=== PATIENT | female | born 2000 | race Caucasian/White ===

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

== ENCOUNTER 2024-03-30 13:58 | Observation (INO) ==
--- NOTE | 2024-03-30 14:12 | ED Triage Note ---
Date of Service March 30, 2024 Provider in Triage Author: Dea Chandler History of Present Illness This patient was briefly evaluated while in triage. An abbreviated physical exam was performed. This patient is a 24-year-old Female who presents to the ED for evaluation of cat bite to the right hand. Pt. was trying to trap a stray cat yesterday morning when the cat bit her. States today, the right hand is more red and painful. States the cat appeared well, did not appear ill. Denies fever or systemic symptoms. Physical Exam VITALS: Vitals are noted on the nurse's note and reviewed by myself. GENERAL: This is a 24 year old female, in no acute distress, nondiaphoretic, well-developed well-nourished. SKIN: No obvious rashes, edema, erythema HEAD: Normocephalic atraumatic. EYES: Conjunctivae without injection, sclerae without icterus. NECK: No JVD. LUNGS: No retractions or accessory muscle use. MUSCULOSKELETAL: Normal gait. NEURO: Patient was alert and oriented to person place and time. No focal neurological deficits. Initial orders for labs and / or imaging were placed and patient was placed in the waiting area until a bed is available. Please see further documentation for the full ED course.
[2024-03-30] MEDS: DIPHTHER/TETAN/PERTUS Vaccine (Tdap, Adol/Adult) 0.5mL IM ONE (14:34)
[2024-03-30] MEDS: SODIUM CHLORIDE 0.9% 1,000 ML IV SCH (14:35)
--- NOTE | 2024-03-30 14:52 | Emergency Department Note ---
History of Present Illness General Chief complaint: Animal Bite Stated complaint: CAT BITE RT HAND Time Seen by Provider: 03/30/24 14:37 History of Present Illness Maximum Pain Intensity: 3 This is a 24-year-old female who presents to the emergency department via private vehicle with complaints of "cat bite to right hand". Patient states that yesterday she was bitten on the dorsal aspect of the right hand. Minimal pain overall. No numbness or tingling. Since that time she notes progressive redness and swelling to the dorsal aspect of the right hand tracking down to the forearm. Unsure of tetanus vaccine status and was ordered from triage and already administered prior to my assessment of the patient. Not currently on oral antibiotics. Patient notes that she has not received any rabies vaccine in life to date. Patient is not concerned about rabies. Patient notes that the cat was a "TNR cat" which is trap, neuter and release. She states that" the cat bit her and then ran off. She is unsure of the whereabouts of the cat. She does not want the rabies postexposure series at this time. Home Medications Medication Instructions Recorded Confirmed Type ibuprofen 200 mg tablet 600 mg PO DIRECTED PRN 03/30/24 03/30/24 History PAIN/FEVER Allergies Allergy/AdvReac Type Severity Reaction Status Date / Time fluconazole Allergy Intermediate Rash Verified 03/30/24 15:22 Past Med/Surg History Problem List (Updated 03/30/24 @ 16:02 by Gilbert Judd PA-C) Hypokalemia Cat bite of right hand with infection (Acute) Vitamin D deficiency Nexplanon in place placed 11/05 Obesity Low back pain Paresthesia Depression Mamadou's thyroiditis No history of previous surgery (Chronic) Hypothyroidism (Chronic) PCOS (polycystic ovarian syndrome) (Chronic) Surgical History S/P ear surgery Family History Mother Depression Denies family history of Ovarian cancer Prostate cancer Myocardial infarction Breast cancer Colorectal cancer Social History Smoking Status: Never smoker Second Hand Exposure: Yes; Hx Alcohol Use: Yes Alcohol type: hard liquor Hx Substance Use: No Preferred Language: Serbian Communication Ability: Effective Visual Impairment: No Limitations Hearing Ability: Normal 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 Beliefs That Will Affect Care: None marital status: Single Current Living Situation: Alone current occupational status: employed current occupation: [employer] Feels Safe at Home: Yes Childhood Exposure to Second-Hand Smoke: Yes Physical Activity Frequency: 1-2 Times per Week Seatbelt Use: always Sunscreen Use: Yes Review of Systems A total of 6 systems reviewed and were otherwise negative Physical Exam Vital Signs Vital Signs - 24 hr 03/30/24 14:11 Temperature 36.5 C Temperature Source Temporal Artery Scan Pulse Rate 77 Respiratory Rate 20 Respiratory Effort / Characteristics Non-Labored Spontaneous Respiratory Depth Normal Blood Pressure 155/89 H Blood Pressure Mean 111 Pulse Oximetry 98 Oxygen Delivery Method Room Air Sepsis Recent Fever Within 48 Hours No Sepsis New/Unexplained Change in Mental Status No Sepsis Action Taken by Nursing No Action Required VITAL SIGNS - Vital signs and nursing notes were reviewed. Stable and afebrile. GENERAL -24-year-old female appearing her stated age who is in no acute distress. Communicates well with provider and answers questions appropriately. SKIN -skin as above as seen in the picture but described as erythema originating from puncture wounds to the dorsal aspect of the right hand favoring medial aspect with erythema tracking overlying the entire dorsal aspect of the hand and the proximal fingers as well as proximally into the dorsal distal forearm area. Puncture wounds are not open at this time. Small scabs at the puncture wounds noted. No purulence. No crepitus. HEAD - NC/AT. EYES - Sclera anicteric. EARS - No deformities of external structures noted on gross examination bilaterally. NOSE - Midline and without cyanosis. No epistaxis or purulent drainage noted. Septum midline without deviation or septal hematoma noted. MOUTH/OROPHARYNX - Without perioral cyanosis. NECK - Neck with FROM. No nuchal rigidity. LUNGS - Chest wall symmetric without accessory muscle use, intercostals retractions, or central cyanosis. Normal vesicular breath sounds CTA B/L. No wheezes, rales, or rhonchi appreciated. CARDIAC - RRR with S1/S2. No murmur, rubs, or gallops appreciated. EXTREMITIES - No clubbing or peripheral cyanosis. Skin as above. Mild tenderness to the dorsal right hand. She is otherwise neurovascularly intact throughout the right upper extremity without deficit. Cap refill of all digits of the right hand within normal limits. Patient able to make a full fist with the fingers of the right hand and fully open the right hand actively. Cap refill within normal limits of all digits of the right hand. No crepitus or lymphangitic streaking. R hand heddler strength WNL. NEUROLOGIC - sensory intact light touch throughout the right upper extremity without deficit. PSYCH -alert, oriented and pleasant on exam. Course Administered Medications Acetaminophen (Acetaminophen 325 Mg Tab) 650 mg PO Q6H PRN PRN Reason: pain(1-4),headache,fever Stop: 04/29/24 15:44 Last Admin: 03/30/24 20:09 Dose: 650 mg Documented By: VERITO Ampicillin Sodium/Sulbactam Sodium 3,000 mg/ Sodium Chloride 100 mls @ 100 mls/hr IV Q6H [facility] Stop: 04/06/24 20:59 Last Infusion: 03/30/24 23:21 Dose: Infused Documented By: Admin: 03/30/24 21:39 Dose: 100 mls/hr Documented By: VERITO Discontinued Medications Diphtheria/Pertussis/Tetanus Vacc (Diphther/Tetan/Pertus Vaccine (Tdap, Adol/Adult) 0.5ml) 0.5 ml IM .ONCE ONE Stop: 03/30/24 14:13 Last Admin: 03/30/24 14:34 Dose: 0.5 ml Documented By: CHRISTIE Sodium Chloride (Nss) 1,000 mls @ 999 mls/hr IV .Q1H1M [facility] Stop: 03/30/24 15:15 Last Infusion: 03/30/24 16:55 Dose: Infused Documented By: Admin: 03/30/24 14:35 Dose: 999 mls/hr Documented By: CHRISTIE Ampicillin Sodium/Sulbactam Sodium 3,000 mg/ Sodium Chloride 100 mls @ 200 mls/hr IV NOW STA Stop: 03/30/24 14:41 Last Infusion: 03/30/24 16:54 Dose: Infused Documented By: Admin: 03/30/24 15:08 Dose: 200 mls/hr Documented By: EMILY Potassium Chloride (Potassium Chloride Crtab 20 Meq Tabcr) 40 meq PO NOW STA Stop: 03/30/24 15:52 Last Admin: 03/30/24 17:14 Dose: 40 meq Documented By: HARVEY Medical Decision Making Laboratory Data 03/30/24 14:38 03/30/24 14:38 Lab Results 03/30/24 Range/Units 14:38 WBC 13.32 H (4.8-10.8) K/ul RBC 4.34 (4.20-5.40) M/uL Hgb 13.5 (12.0-16.0) g/dl Hct 39.4 (37.0-47.0) % MCV 90.8 (80.0-100.0) fL MCH 31.1 (25.0-34.0) pg MCHC 34.3 (32.0-36.0) g/dL RDW Std Deviation 40.8 (36.4-46.3) fL RDW Coeff of Pilar 12.3 (11.5-14.5) % Plt Count 342 (130-400) K/uL MPV 10.1 (9.4-12.4) fL Immature Gran % (Auto) 0.5 % Neut % (Auto) 65.2 % Lymph % (Auto) 24.5 % [place] % (Auto) 8.6 % Eos % (Auto) 0.8 % Baso % (Auto) 0.4 % Neut # (Auto) 8.68 H (1.40-6.50) K/uL Lymph # (Auto) 3.27 (1.20-3.40) K/uL [place] # (Auto) 1.15 H (0.11-0.59) K/uL Eos # (Auto) 0.11 (0.00-0.50) K/uL Baso # (Auto) 0.05 (0.00-0.20) K/uL Immature Gran # (Auto) 0.06 (0.01-0.20) K/uL Sodium 137 (136-145) mmol/L Potassium 3.4 L (3.5-5.1) mmol/L Chloride 103 (98-107) mmol/L Carbon Dioxide 27 (21-32) mmol/L Anion Gap 7 (3-11) BUN 9 (6-23) mg/dl Creatinine 0.77 (0.6-1.2) mg/dl Est Cr Clr Drug Dosing 152.9 ml/min Est GFR ( Amer) 123.5 ml/min Est GFR (Non-Af Amer) 106.6 ml/min BUN/Creatinine Ratio 11.7 (10-20) Glucose 81 (70-99(Fasting)) mg/dl Calcium 9.3 (8.6-10.3) mg/dl Magnesium 1.9 (1.7-2.4) mg/dl Total Bilirubin 0.5 (0.2-1.0) mg/dl AST 17 (13-39) U/L ALT 16 (7-52) U/L Alkaline Phosphatase 80 (34-104) U/L Total Protein 7.8 (6.0-8.3) gm/dl Albumin 4.3 (3.4-5.0) gm/dl Globulin 3.5 (2.5-4.0) gm/dl Albumin/Globulin Ratio 1.2 (0.9-2) Imaging Data Radiologist's Impression: Hand X-Ray 03/30/24 14:47 XR hand RT min 3V routine HISTORY: 24 years-old Female R hand cat bite, infection acute right hand pain status post soft tissue injury COMPARISON: None TECHNIQUE: 3 views of the right hand FINDINGS: Dorsal hand soft tissue swelling. Mild negative ulnar variance. No acute fracture, dislocation, osseous erosion or opaque foreign body. IMPRESSION: Soft tissue swelling without acute osseous abnormality or opaque foreign body. ACT 112: Negative or not required by law. The above report was generated using voice recognition software. It may contain grammatical, syntax or spelling errors. Electronically signed by: Philip Madsen M.D. 03/30/2024 3:40 PM MDM Narrative Patient was seen and evaluated as above in room D02a. Review was performed of triage nursing notes and vital signs. A thorough history and physical exam was performed. Patient presents to us today for evaluation of an infected cat bite to the dorsal right hand. My assessment there is obvious infection noted. Consent was obtained and a picture of the hand was obtained and placed here in the chart within the physical exam section to help track progression. Options of care were discussed with the patient. IV access was established. Labs were drawn. Patient was evaluated in triage and already had orders placed for tetanus vaccine status update, fluids, IV Unasyn. This is reasonable. X- ray of the right hand was also ordered. Negative for fracture or radiopaque foreign body per my interpretation. She denies chance of . Labs reveal leukocytosis 13.32. No anemia. I did have a thorough discussion with the patient regarding indication for postexposure rabies prophylaxis. She was bitten by a cat that has an unknown vaccine status and is not currently observable as it ran off after it bit her. I informed the patient that as there is a chance for rabies exposure in this scenario, that it would be indicated to proceed with the rabies postexposure series. I reviewed this with the patient. I informed the patient that rabies is not treatable if it would be acquired, rather it is only preventable through postexposure series. She is aware of all of this and respectfully declines rabies postexposure treatment. Noting location and mechanism patient will require inpatient management for IV antibiotics and close trending of the right hand infection. Case discussed with the hospitalist service. Please refer to further documentation regarding her stay. In the evaluation and treatment of this patient the following differential diagnoses were entertained: Cellulitis, abscess, retained foreign body, fracture, contusion, among others Impression & Plan Cat bite of right hand with infection Discharge Plan Visit Data Chief Complaint: Animal Bite Stated Complaint: CAT BITE RT HAND ED Provider: Damian Raza ED Midlevel Provider: Rolly Dorado Discharge Problem: Cat bite of right hand with infection Patient Disposition: Admitted As Inpatient Condition: Good Discharge Instructions Interventions: ED Discharge Assessment Last Done: 03/30/24 17:42
[2024-03-30] MEDS: AMPICILLIN/SULBACTAM SOD 3,000 MG in SODIUM CHLOR 0.9% MINI-B 100 ML IV STA (15:08)
[2024-03-30 15:13] LABS: Basophils # (auto) 0.05 K/uL (0.00-0.20); Basophils % (auto) 0.4 %; Eosinophils # (auto) 0.11 K/uL (0.00-0.50); Eosinophils % (auto) 0.8 %; Hematocrit (blood only) 39.4 % (37.0-47.0); Hemoglobin 13.5 g/dl (12.0-16.0); Immature Granulocytes # (auto) 0.06 K/uL (0.01-0.20); Immature Granulocytes % (auto) 0.5 %; Lymphocytes # (auto) 3.27 K/uL (1.20-3.40); Lymphocytes % (auto) 24.5 %; Mean Corpuscular Hemoglobin 31.1 pg (25.0-34.0); Mean Corpuscular Hgb Conc 34.3 g/dL (32.0-36.0); Mean Corpuscular Volume 90.8 fL (80.0-100.0); Mean Platelet Volume 10.1 fL (9.4-12.4); Monocytes # (auto) 1.15 K/uL (0.11-0.59); Monocytes % (auto) 8.6 %; Neutrophils # (auto) 8.68 K/uL (1.40-6.50); Neutrophils % (auto) 65.2 %; Platelet Count 342 K/uL (130-400); RDW Coefficient of Variation 12.3 % (11.5-14.5); RDW Standard Deviation 40.8 fL (36.4-46.3); Red Blood Count 4.34 M/uL (4.20-5.40); White Blood Count 13.32 K/ul (4.8-10.8)
--- NOTE | 2024-03-30 15:37 | History & Physical Report ---
Date of Service March 30, 2024 Assessment & Plan (1) Cat bite of right hand with infection: Plan: -Admit to med/surge -Currently stable and non-toxic appearing -Developed progressive swelling/erythema over the dorsal aspect of the right hand after being bitten by a stray cat yesterday -Noted to have a leukocytosis of 13 -Xray of the right hand notes soft tissue swelling but negative for abscess or bone involvement -S/P one dose of Unasyn and Diphtheria/tetanus/pertussis booster -Patient continues to decline rabies post-exposure prophylaxis, continue to stress importance and risks if she does not receive prophylaxis -Will continue with Unasyn for now, should be able to be converted to PO abx tomorrow -Will obtain blood cultures -HH diet -BL SCD's for DVT PPX -AM CBC, BMP, mag (2) Hypokalemia: Plan: -3.4 in the ED -Will obtain ECG and mag level -Will give 40 meq PO KCL now -Monitor am electrolytes Plan The patient was discussed with Dr. Smith at the time of the admission History of Present Illness Chief Complaint: Cat bite, progressive erythema/swelling of right hand Primary Care Provider: Jenn Valencia DO Kerri is a 24 year old female with a PMH significant for morbid obesity, hypothyroidism, PCOS, and depression who presented to the [facility] ED on 03/30/24 due to ongoing erythema, swelling, and pain of the right hand after sustaining a cat bite yesterday. Per the ED, the patient noted that the cat is a catch, neuter, and release animal and is not domesticated. She was recommended to receive rabies vaccinations for prevention but declined as she believes the cat to be healthy. She remained stable in the ED. Labs were significant for a leukocytosis of 13 with neutrophil predominance of 8, potassium of 3.4. Xray of the right hand was read as "Soft tissue swelling without acute osseous abnormality or opaque foreign body. ". Prior to admission the patient was given 1L NSS, a dose of Unasyn, and Diphtheria/tetanus/pertussis booster. At the time of the exam the patient was sitting in bed in no acute distress. 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 She has been tacking this particular cat for a few weeks and she reports it had been acting normally and did not look ill. Yesterday she attempted to trap the cat but it bit her on the dorsal aspect of the right hand. She initially had mild swelling and erythema of the dorsal aspect to of the right hand. Overnight she experienced progressive swelling/erythema just distal to the right wrist. Pain is currently controlled, has intact sensation/motor function and is able to flex right hand without issue. Denies recent fever, chills, chest pain, SOB, and pain, nausea, vomiting, diarrhea, dysuria, hematuria, melena, LE swelling, and recent trauma. Spoke to the patient at length regarding the risk of contract rabies due to the animal bite, especially since the animal is a stray and is unable to be tested. I explained that rabies is very preventable with current vaccination schedules after the bite and that it is untreatable after symptoms begin, which can result in . The patient expressed understanding of the risks of not receiving post exposure prophylaxis and elected to hold off at this time. Please refer to Dr. Smith's attestation for any changes to the treatment plan Allergies Allergy/AdvReac Type Severity Reaction Status Date / Time fluconazole Allergy Intermediate Rash Verified 03/30/24 15:22 Home Medications Medication Instructions Recorded Confirmed Type ibuprofen 200 mg tablet 600 mg PO DIRECTED PRN 03/30/24 03/30/24 History PAIN/FEVER Past Med/Surg History Problem List (Updated 03/30/24 @ 16:02 by Gilbert Judd PA-C) Hypokalemia Cat bite of right hand with infection (Acute) Vitamin D deficiency Nexplanon in place placed 11/05 Obesity Low back pain Paresthesia Depression Mamadou's thyroiditis No history of previous surgery (Chronic) Hypothyroidism (Chronic) PCOS (polycystic ovarian syndrome) (Chronic) Surgical History S/P ear surgery Family History Mother Depression Denies family history of Ovarian cancer Prostate cancer Myocardial infarction Breast cancer Colorectal cancer Social History Smoking Status: Never smoker Second Hand Exposure: Yes; Hx Alcohol Use: Yes Hx Substance Use: No Preferred Language: Slovak Communication Ability: Effective Visual Impairment: No Limitations Hearing Ability: Normal marital status: Single Current Living Situation: Alone current occupational status: employed current occupation: [employer] Feels Safe at Home: Yes Childhood Exposure to Second-Hand Smoke: Yes Physical Activity Frequency: 1-2 Times per Week Seatbelt Use: always Sunscreen Use: Yes Physical Exam Physical Exam: Physical Exam: General: In no acute distress, stated age, well-nourished, non-toxic appearing HEENT: Normocephalic, atraumatic, no scleral icterus, pupils around round, symmetrical, and reactive to light, moist mucus membranes, trachea midline, no thyromegaly Chest/Pulm: No respiratory distress, symmetrical chest expansion, clear breath sounds throughout Cardiac: RRR, no murmurs noted Abdomen: Negative for ascites and bruising, normoactive bowel sounds, soft, non-tender to palpation throughout Musculoskeletal: Symmetrical and without signs of acute trauma, upper and lower extremities with full ROM, no atrophy, spasticity, or flaccidity Extremities: Radial, dorsalis pedis, and posterior tibial pulses are intact and symmetrical, no edema noted in the BL LE's Skin: Patient with swelling and erythema overlying the dorsal aspect of the right hand between the knuckles of the right hand and just distal to the right wrist >No current drainage from the small puncture crespo on the dorsal aspect of the right hand Neuro: Alert and oriented to person, place, month, year, and president, no focal defects, no tremors noted Psych: No acute distress, calm and cooperative during the exam Results & Data Results & Data Vital Signs (Past 12 Hours) Vital Signs Temp Pulse Resp BP Pulse Ox O2 Del Method 03/30/24 14:11 36.5 C 77 20 155/89 H 98 Room Air Laboratory Results Abnormal lab results 03/30/24 Range/Units 14:38 WBC 13.32 H (4.8-10.8) K/ul Neut # (Auto) 8.68 H (1.40-6.50) K/uL [place] # (Auto) 1.15 H (0.11-0.59) K/uL Potassium 3.4 L (3.5-5.1) mmol/L Diagnostic Findings Hand X-Ray 03/30/24 14:47 XR hand RT min 3V routine HISTORY: 24 years-old Female R hand cat bite, infection acute right hand pain status post soft tissue injury COMPARISON: None TECHNIQUE: 3 views of the right hand FINDINGS: Dorsal hand soft tissue swelling. Mild negative ulnar variance. No acute fracture, dislocation, osseous erosion or opaque foreign body. IMPRESSION: Soft tissue swelling without acute osseous abnormality or opaque foreign body. ACT 112: Negative or not required by law. The above report was generated using voice recognition software. It may contain grammatical, syntax or spelling errors. Electronically signed by: Philip Madsen M.D. 03/30/2024 3:40 PM Code Status & VTE Plan Code Status Full code VTE Prophylaxis Plan VTE Prophylaxis will be ordered: Yes Supervising Physician Co-Signing Physician Notes Patient seen and examined, chart reviewed, case discussed with Gilbert Judd PA-C and I agree with the assessment and plan as above except as otherwise noted Labs and images reviewed 24-year-old female who presents after a cat bite to the right hand with associated cellulitis and soft tissue swelling. X-ray does not show bony i nvolvement. 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 2 puncture crespo are noted. On the dorsal hand without purulence or discharge. Did review rabies vaccination. Patient is aware that rabies if contracted is fatal that there is not a treatment for this other than preemptive vaccination. She reports she is not concerned about this, and understands this information but declines rabies vaccination. The animal was wild and not available for testing, she understands that there is an increased risk of rabies with this bite exposure again declines rabies vaccination no additional questions on assessment. Agree with Unasyn and management as above PG Care Time/CCT Total # of Minutes Spent Total Time Spent with Patient: Total time spent is greater than 50% in coordination of care (as documented) at patient's floor/unit and/or counseling patient: Coding [place] [address] INT INP/OBS CARE 2/55MIN Patient Type Established Medical Decision Making Moderate Complexity Diagnoses Cat bite of right hand with infection S61.451A; L08.9; W55.01XA Hypokalemia E87.6
--- NOTE | 2024-03-30 15:41 | XRay Report ---
XR hand RT min 3V routine HISTORY: 24 years-old Female R hand cat bite, infection acute right hand pain status post soft tissu e injury COMPARISON: None TECHNIQUE: 3 views of the right hand FINDINGS: Dorsal hand soft tissue swelling. Mild negative ulnar variance. No acute fracture, dislocation, osseo us erosion or opaque foreign body. IMPRESSION: Soft tissue swelling without acute osseous abnormality or opaque foreign body. ACT 112: Negative or not required by law. The above report was generated using voice recognition software. It may contain grammatical, syntax o r spelling errors. Electronically signed by: Philip Madsen M.D. 03/30/2024 3:40 PM
[2024-03-30] MEDS ORDERED: MoRPHine SULFATE 2 MG/ML CARP IV PRN (15:42)
[2024-03-30] MEDS ORDERED: NALOXONE HCL 0.4 MG/1 ML VIAL/CARP IV PRN (15:42)
[2024-03-30 15:45] LABS: Albumin Globulin Ratio 1.2 (0.9-2); Albumin Level 4.3 gm/dl (3.4-5.0); BUN Creatinine Ratio 11.7 (10-20); Bilirubin,Total 0.5 mg/dl (0.2-1.0); Calcium 9.3 mg/dl (8.6-10.3); Creatinine Clr Calc Pharmacy 152.9 ml/min; Est GFR (African American) 123.5 ml/min; Est GFR (Non-African American) 106.6 ml/min; Globulin 3.5 gm/dl (2.5-4.0); Potassium 3.4 mmol/L (3.5-5.1); Total Protein 7.8 gm/dl (6.0-8.3)
[2024-03-30 16:22] LABS: Magnesium 1.9 mg/dl (1.7-2.4)
[2024-03-30] MEDS: POTASSIUM CHLORIDE CRTAB 20 MEQ TABCR PO STA (17:14)
--- NOTE | 2024-03-30 17:48 | Electrocardiogram Report ---
Test Reason : Blood Pressure : / mmHG Vent. Rate : 075 BPM Atrial Rate : 075 BPM P-R Int : 158 ms QRS Dur : 092 ms QT Int : 408 ms P-R-T Axes : 023 006 007 degrees QTc Int : 455 ms Normal sinus rhythm with sinus arrhythmia Normal ECG No previous ECGs available Confirmed by Mohit Ramos ([id number]) on 03/30/2024 5:47:49 PM Referred By: REFERRED SELF Confirmed By:Moreno Ramos
[2024-03-30] MEDS: ACETAMINOPHEN 325 MG TAB PO PRN (20:09)
[2024-03-30] MEDS: AMPICILLIN/SULBACTAM SOD 3,000 MG in SODIUM CHLOR 0.9% MINI-B 100 ML IV SCH (21:39)
[2024-03-31 07:49] LABS: Basophils # (auto) 0.03 K/uL (0.00-0.20); Basophils % (auto) 0.3 %; Eosinophils # (auto) 0.13 K/uL (0.00-0.50); Eosinophils % (auto) 1.4 %; Hematocrit (blood only) 37.5 % (37.0-47.0); Hemoglobin 12.6 g/dl (12.0-16.0); Immature Granulocytes # (auto) 0.15 K/uL (0.01-0.20); Immature Granulocytes % (auto) 1.6 %; Lymphocytes # (auto) 1.96 K/uL (1.20-3.40); Lymphocytes % (auto) 20.6 %; Mean Corpuscular Hemoglobin 30.4 pg (25.0-34.0); Mean Corpuscular Hgb Conc 33.6 g/dL (32.0-36.0); Mean Corpuscular Volume 90.6 fL (80.0-100.0); Mean Platelet Volume 10.2 fL (9.4-12.4); Monocytes % (auto) 8.4 %; Neutrophils # (auto) 6.46 K/uL (1.40-6.50); Neutrophils % (auto) 67.7 %; Platelet Count 306 K/uL (130-400); RDW Coefficient of Variation 12.5 % (11.5-14.5); Red Blood Count 4.14 M/uL (4.20-5.40); White Blood Count 9.53 K/ul (4.8-10.8)
[2024-03-31 08:10] LABS: Albumin Globulin Ratio 1.2 (0.9-2); Albumin Level 3.9 gm/dl (3.4-5.0); BUN Creatinine Ratio 14.5 (10-20); Bilirubin,Total 0.7 mg/dl (0.2-1.0); Creatinine Clr Calc Pharmacy 170.7 ml/min; Est GFR (African American) 139.2 ml/min; Est GFR (Non-African American) 120.1 ml/min; Globulin 3.2 gm/dl (2.5-4.0); Potassium 4.2 mmol/L (3.5-5.1); Total Protein 7.1 gm/dl (6.0-8.3)
[2024-03-31] MEDS: LORazepam 0.5 MG TAB PO STA (11:10)
[2024-03-31] MEDS: RABIES VACC (IMOVAX) HUMAN DIPL CELL 2.5 UNITS/ML SYR IM ONE (11:25)
[2024-03-31] MEDS: RABIES IMMUNE GLOBULIN (HUMAN) 300 UNITS/ML VIAL IM ONE (11:31)
--- NOTE | 2024-03-31 14:16 | Discharge Summary ---
Discharge Summary Date of Service March 31, 2024 Notes For Next Care Provider Patient presented after cat bite on right hand with cellulitis. Patient was given first dose of rabies postexposure prophylaxis vaccine series 03/31/2024. The rest of her vaccine series is scheduled as follows: - Day 3 vaccine on 04/03/2024 - Day 7 vaccine on 04/07/2024 - Day 14 vaccine on 04/14/2024 Medication Changes From Visit Patient prescribed Augmentin twice daily x 7 days on discharge Admission HPI Per Admitting Provider Kerri is a 24 year old female with a PMH significant for morbid obesity, hypothyroidism, PCOS, and depression who presented to the [facility] ED on 03/30/24 due to ongoing erythema, swelling, and pain of the right hand after sustaining a cat bite yesterday. Per the ED, the patient noted that the cat is a catch, neuter, and release animal and is not domesticated. She was recommended to receive rabies vaccinations for prevention but declined as she believes the cat to be healthy. She remained stable in the ED. Labs were significant for a leukocytosis of 13 with neutrophil predominance of 8, potassium of 3.4. Xray of the right hand was read as "Soft tissue swelling without acute osseous abnormality or opaque foreign body. ". Prior to admission the patient was given 1L NSS, a dose of Unasyn, and Diphtheria/tetanus/pertussis booster. At the time of the exam the patient was sitting in bed in no acute distress. 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 She has been tacking this particular cat for a few weeks and she reports it had been acting normally and did not look ill. Yesterday she attempted to trap the cat but it bit her on the dorsal aspect of the right hand. She initially had mild swelling and erythema of the dorsal aspect to of the right hand. Overnight she experienced progressive swelling/erythema just distal to the right wrist. Pain is currently controlled, has intact sensation/motor function and is able to flex right hand without issue. Denies recent fever, chills, chest pain, SOB, and pain, nausea, vomiting, diarrhea, dysuria, hematuria, melena, LE swelling, and recent trauma. Spoke to the patient at length regarding the risk of contract rabies due to the animal bite, especially since the animal is a stray and is unable to be tested. I explained that rabies is very preventable with current vaccination schedules after the bite and that it is untreatable after symptoms begin, which can result in . The patient expressed understanding of the risks of not receiving post exposure prophylaxis and elected to hold off at this time. Please refer to Dr. Smith's attestation for any changes to the treatment plan Admission Exam Per Admitting Provider General: In no acute distress, stated age, well-nourished, non-toxic appearing HEENT: Normocephalic, atraumatic, no scleral icterus, pupils around round, symmetrical, and reactive to light, moist mucus membranes, trachea midline, no thyromegaly Chest/Pulm: No respiratory distress, symmetrical chest expansion, clear breath sounds throughout Cardiac: RRR, no murmurs noted Abdomen: Negative for ascites and bruising, normoactive bowel sounds, soft, non- tender to palpation throughout Musculoskeletal: Symmetrical and without signs of acute trauma, upper and lower extremities with full ROM, no atrophy, spasticity, or flaccidity Extremities: Radial, dorsalis pedis, and posterior tibial pulses are intact and symmetrical, no edema noted in the BL LE's Skin: Patient with swelling and erythema overlying the dorsal aspect of the right hand between the knuckles of the right hand and just distal to the right wrist >No current drainage from the small puncture crespo on the dorsal aspect of the right hand Neuro: Alert and oriented to person, place, month, year, and president, no focal defects, no tremors noted Psych: No acute distress, calm and cooperative during the exam Principal Dx & Hospital Course #1 = Principal Diagnosis (1) Cat bite of right hand with infection: - Patient presented with progressive swelling and erythema over the dorsal aspect of her right hand after being bit by a stray cat on 03/29/2024. -X-ray of right hand on admission notes soft tissue swelling, but negative for abscess or bone involvement. -Leukocytosis resolved -Patient received diphtheria/tetanus/pertussis booster in ED -Received Unasyn while hospitalized, discharged on Augmentin p.o. twice daily x 7 days -Patient did agree to rabies postexposure prophylaxis vaccine series. Educated patient that this is a 4 dose series, with 1 dose today, second dose in 3 days, third dose in 7 days, final dose in 14 days. Informed patient that she can get these vaccines in the ER, then after the injection she can return home. -- First dose given 03/31/2024. -- Second dose on 04/03/2024 -- Third dose on 04/07/2024 -- Fourth and final dose on 04/14/2024 (2) Hypokalemia: -3.4 in the ED on admission, repleted and -Potassium 4.2 and magnesium 1.9 on day of discharge Plan Patient to return to [facility] for remaining rabies postexposure prophylaxis vaccine series. Discharge Exam General: No acute distress, nondiaphoretic, well-developed, well-nourished. Skin: Mild swelling over dorsal aspect of right hand between the knuckles of the right hand and just distal to the right wrist. Erythema improved. No current drainage from the small puncture crespo on the dorsal aspect of the right hand. Cardiac: Regular rate and rhythm without murmurs gallops or rubs. Pulm: Clear to auscultation bilaterally without wheezes, rales or rhonchi. No retractions or accessory muscle use. Abdominal: Positive bowel sounds x 4. Soft, nontender, without masses or organomegaly. No guarding or rebound tenderness. Neuro: A&O x3. No focal neurological deficits. Updated Medication List Medication Instructions Recorded Confirmed Type ibuprofen 200 mg tablet 600 mg PO DIRECTED PRN 03/30/24 03/30/24 History PAIN/FEVER amoxicillin 875 mg-potassium 1 tab PO BID #14 tabs 03/31/24 Rx clavulanate 125 mg tablet Hospital Stay Data Consultations 03/30/24 15:26 ED Decision to Admit Stat Pending Results Patient Have Any Pending Studies at Discharge: No Discharge Instructions Given to Patient (Per Discharging Provider) Barry Manning were admitted to the hospital due to cellulitis secondary to a cat bite on your right hand. This is what caused your symptoms of swelling and redness over the dorsal aspect of your right hand. The x-ray of your right hand showed some soft tissue swelling, but you did not have any abscess formation or bone involvement. You were given a tetanus booster, IV antibiotics, rabies immunoglobulin injection (this is just 1 dose) and your first dose of the rabies postexposure prophylaxis vaccine series. Upon discharge from the hospital: * Please take Augmentin (oral antibiotic) by mouth twice daily x 7 days. It is important to take the antibiotic as prescribed and finish the antibiotic course even if you feel better. It treats the infection and stops it from returning. This prescription was sent to the [facility] pharmacy on [address]. * Continue with the rabies postexposure prophylaxis vaccine series. The series is a total of 4 doses: day 1 (initial dose), day 3, day 7, and day 14. You received the first dose in the hospital on your day of discharge, 03/31/2024. You will follow the following dates for the rest of your vaccine series: -- Day 3 vaccine on 04/03/2024 -- Day 7 vaccine on 04/07/2024 -- Day 14 vaccine on 04/14/2024 You can get these vaccines in the ER here. When you arrive, inform them that you are here for your rabies vaccine series, they will give you your injection, and then you can return home. Please contact your PCP if you experience any of the following: Fever of 100.4 F or higher, increased swelling or redness around the bite site, pus draining from the wound, trouble or pain when moving your fingers or wrist, pain that worsens in or around the infected area, shaking chills, persistent vomiting, persistent headache, or persistent fatigue. It was a pleasure taking care of you while you were in the hospital, Ligia Napier PA-C Total Time Total Time Spent Total Time Spent (In Minutes): Greater than 30 minutes spent completing this discharge process including direct patient care, medication reconciliation, documentation, review of labs and images, and coordination of care. Coding Level of Care Code 57917 INP/OBS DISCH >30 MIN Diagnoses Cat bite of right hand with infection S61.451A; L08.9; W55.01XA Hypokalemia E87.6
== END 2024-03-31 12:37 | disposition home or self-care (01) ==
LOC: 3W 13:58 → ED 13:58 → SUATTDRO 15:41 → 3W 17:42